=== PATIENT | female | born 1965 | race Caucasian/White ===

== ENCOUNTER 2022-05-27 21:26 | Emergency (ER) | payer OTHER, MEDICAID ==
[~2022-05-27] VITALS: Ht 154.9 cm; Wt 52.0 kg
[2022-05-28] MEDS ORDERED: IBUPROFEN 600MG TABLET PO ONE (01:00)
[2022-05-28 01:09] VITALS: BP 127/87
== END 2022-05-28 01:11 | disposition home or self-care (01) ==
LOC: ER 21:26
DX: C43.59 Malignant melanoma of other part of trunk (principal); M54.50 Low back pain, unspecified
CPT/HCPCS: 99282